=== PATIENT | male | born 1990 | race Caucasian/White ===

== ENCOUNTER 2019-11-20 19:31 | Emergency (ER) | payer OTHER ==
[~2019-11-20] VITALS: Ht 172.7 cm; Wt 115.2 kg
[2019-11-20 19:36] VITALS: Ht 172.7 cm; Wt 115.2 kg
[2019-11-20 21:49] VITALS: BP 134/82
== END 2019-11-20 21:49 | disposition home or self-care (01) ==
LOC: ED 19:31
DX: S61.411A Laceration without foreign body of right hand, initial encounter (principal); W25.XXXA Contact with sharp glass, initial encounter; Y93.89 Activity, other specified; Y92.89 Other specified places as the place of occurrence of the external cause; Y99.8 Other external cause status
CPT/HCPCS: 90715; J2001; Q0092